=== PATIENT | female | born 1985 | race Caucasian/White ===

== ENCOUNTER 2018-07-14 07:00 | Emergency (ER) | payer SELFPAY ==
[2018-07-14 07:26] VITALS: BP 127/88
--- NOTE | 2018-07-14 07:31 | UC ---
Throat Pain/Nasal Armon HPI - HPI Summary HPI Summary: Patient presents to urgent care reporting head cold approximately 2 weeks ago. Patient states she is feeling better to yesterday. Patient states she progressive left ear pain woke up during the night with sore throat. Patient states has pain with swallowing. Patient took Nyquil and was able to sleep. Patient states has not taken anything this morning. Patient has had water to drink. No drooling. No fevers or chills. Patient was around her young nieces that had URIs but no other medical complaints. Patient denies fevers or chills. No cough. No shortness of breath. No abdominal pain. Patient's medications reviewed this visit. 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 EOM intact and full ENT: Hearing grossly normal, left TM + fluid, erythema, right TM wnl, no mastoid pain turbinates inflammed and boggy, + PND, mmoist, uvula midline, no exudate, no erythema Neck: Positive: Supple Respiratory: Positive: No respiratory distress, No accessory muscle use + CTA throughout no w/r Cardiovascular: RRR nl s1, s2 no m/r CBT <2 sec abd soft + BS nt/nd no guarding, no distension Musculoskeletal Exam: MCCALLUM x 4 without difficulty Strength Intact, ROM Intact Neurological: Positive: Alert, + sensation throughout Psychological: Positive: Normal Response To Family Skin: Positive: no rash, no ecchymosis Triage Information Reviewed: Yes Throat Pain/Nasal Course/Dx - Course Course Of Treatment: Patient presents to urgent care reporting 3-4 hours of progressive left ear and left side throat pain. Patient with pain swallowing. No fevers or chills. Patient took NyQuil last night with improvement. No analgesia today. On exam vital signs are stable. Patient with evolving otitis media in the left. Patient's turbinates inflamed and boggy. We'll prescribe antibiotics, Flonase. Recommended decongestant. Secretion precaution. Hydration. Patient's also given dose of Diflucan as she states she frequently gets antibiotic related yeast infection. Pt's strep neg - Differential Dx/Diagnosis Provider Diagnosis: Otitis media, Upper respiratory infection, Pharyngitis Discharge - Sign-Out/Discharge Documenting (check all that apply): Patient Departure All imaging exams completed and their final reports reviewed: No Studies - Discharge Plan Condition: Stable Disposition: HOME Prescriptions: Amoxicillin/Clavulanate TAB* [Augmentin TAB 875*] 875 mg PO BID #20 tab Fluconazole [Diflucan 150 MG (NF)] 150 mg PO ONCE PRN #1 tab PRN Reason: vaginal yeast infection Fluticasone NASAL SPRAY 50MCG* [Flonase NASAL SPRAY 50MCG*] 2 spray BOTH NARES DAILY #1 btl Patient Education Materials: Pharyngitis (ED), Ear Infection (ED), Upper Respiratory Infection (ED) Referrals: No Primary Care Phys,NOPCP [Primary Care Provider] - Additional Instructions: - Okay to alternate ibuprofen (Advil, Motrin) and Tylenol 1000mg every 3 hours for pain. Take with food. Do NOT take for more than 4-5 days - Okay to gargle and spit warm salt water every 4 hours as needed for pain - Stay well hydrated - frequent sips of cold fluids will be soothing to your throat (popsicles, jello, ice cream, ice water). Avoid excess caffeine until your symptoms have resolved. -Throat infections are spread by oral secretions - do not share eating or drinking utensils until you symptoms are resolved. Clean items that may get your secretions such as cell phones, ipads, computer mouse, television remotes. Once you have been on antibiotics for 2 days, change your toothbrush and your pillowcase. - use nasal spray as prescribed - humidify the air in the room where you sleep - boil water, run a hot steam shower, vaporizer, cups of water by heat register - Okay to take over the counter cough and decongestant medication - you were given a prescription for diflucan - this can be taken to treat a vaginal yeast infection if you develop one from the antibiotics - Contact your doctor to arrange a follow-up appointment as needed - Billing Disposition and Condition Condition: STABLE Disposition: Home
== END 2018-07-14 07:51 | disposition home or self-care (01) ==
LOC: UCCORT 07:00
DX: H66.92 Otitis media, unspecified, left ear (principal); J06.9 Acute upper respiratory infection, unspecified; J02.9 Acute pharyngitis, unspecified
CPT/HCPCS: 87651; 99202; G0463